=== PATIENT | female | born 1935 | race Caucasian/White ===

== ENCOUNTER 2023-07-18 17:53 | Emergency (ER) | payer MEDICARE ==
[~2023-07-18] VITALS: Ht 162.6 cm; Wt 45.5 kg
[2023-07-18 18:38] VITALS: O2SAT 97
[2023-07-18 19:40] VITALS: PULSE 80; RESP 12; O2SAT 94
[2023-07-18 20:00] VITALS: BP 164/75; PULSE 80; RESP 12; TEMP 98; O2SAT 96
== END 2023-07-18 20:33 | disposition home or self-care (01) ==
LOC: ER 17:53 → EDBD 17:53 → EDUNIT# 17:53 → ER 20:33
DX: S01.81XA Laceration without foreign body of other part of head, initial encounter (principal); Z88.6 Allergy status to analgesic agent; W18.09XA Striking against other object with subsequent fall, initial encounter; Y93.89 Activity, other specified; Y92.89 Other specified places as the place of occurrence of the external cause; Y99.8 Other external cause status
CPT/HCPCS: 12011; 70450

== ENCOUNTER 2023-07-20 14:01 | Emergency (ER) | payer MEDICARE ==
[~2023-07-20] VITALS: Ht 160 cm; Wt 45.6 kg
[2023-07-20 14:01] VITALS: BP 131/73; PULSE 76; RESP 18; O2SAT 98
== END 2023-07-20 15:31 | disposition left against medical advice (07) ==
LOC: ER 14:01
DX: S01.111D Laceration without foreign body of right eyelid and periocular area, subsequent encounter (principal); Z53.21 Procedure and treatment not carried out due to patient leaving prior to being seen by health care provider; W17.89XD Other fall from one level to another, subsequent encounter

== ENCOUNTER 2023-10-03 07:07 | Inpatient (IN) | payer MEDICARE ==
[~2023-10-03] VITALS: Ht 160 cm; Wt 50.2 kg
[2023-10-03 07:54] LABS: Basophils # (auto) 0 10 ^3/uL (0-0.2); Basophils % (auto) 0.6 % (0.0-2.0); Eosinophils # (auto) 0.2 10 ^3/uL (0-0.8); Eosinophils % (auto) 3.2 % (0.0-7.0); Hematocrit 41.4 % (36.0-46.0); Hemoglobin 14.5 g/dL (12.2-16.2); Lymphocytes # (auto) 1.8 10 ^3/uL (0.4-5.4); Lymphocytes % (auto) 24.2 % (10.0-50.0); Mean Corpuscular Hemoglobin 33.2 pg (28.0-32.0); Mean Corpuscular Hgb Conc. 34.9 g/dL (32.0-36.0); Mean Corpuscular Volume 95.2 fL (80.0-100.0); Monocytes # (auto) 0.6 10 ^3/uL (0-1.3); Neutrophils # (auto) 4.7 10 ^3/uL (1.6-8.6); Red Blood Cells 4.35 10^6/uL (4.0-5.20); Red Cell Distribution Width 13.6 % (11.8-14.3); White Blood Cell 7.4 10^3/uL (4.4-10.8)
[2023-10-03 08:06] LABS: Urine Bacteria None Seen /hpf (None Seen)
[2023-10-03 08:10] LABS: Alanine Aminotransferase 14 U/L (7-40); Albumin 4.4 g/dL (3.2-4.8); Alkaline Phosphatase 53 U/L (46-116); Anion Gap 10 (5-15); Aspartate Aminotransferase 18 U/L (13-40); BUN/Creatinine Ratio 13.1 (10.0-20.0); Blood Urea Nitrogen 13 mg/dL (9-23); Calcium 9.8 mg/dL (8.7-10.4); Carbon Dioxide 24 mmol/L (20-30); Chloride 104 mmol/L (98-107); Glucose 103 mg/dL (74-106); Potassium 4.4 mmol/L (3.5-5.1); Sodium 138 mmol/L (136-145)
[2023-10-03 08:11] LABS: Bilirubin, Total 0.6 mg/dL (0.2-1.0); Total Protein 6.8 g/dL (5.7-8.2)
[2023-10-03 08:12] LABS: Urine Blood Negative /uL (Negative); Urine Clarity Clear (Clear); Urine Color Light-Yellow (Yellow); Urine Protein, UAD Negative (Negative); Urine Specific Gravity 1.013 (1.001-1.035); Urine Urobilinogen Normal (Negative); Urine WBC 2 /hpf (0 - 5)
[2023-10-03 09:04] LABS: Lipase 40 U/L (12-53)
[2023-10-03 10:06] VITALS: PULSE 62; RESP 14; O2SAT 98
[2023-10-03] MEDS ORDERED: ONDANSETRON HCL 4 MG/2 ML VIAL IV PRN (12:00)
[2023-10-03] MEDS ORDERED: MORPHINE SULFATE INJ 2 MG/ml SYRG IV PRN (12:00)
[2023-10-03] MEDS: SODIUM CHLORIDE 0.9% 1,000 ML IV SCH (12:25)
[2023-10-03] MEDS: PANTOPRAZOLE 40 MG/10 ML VIAL INJ IV ONE (12:25)
[2023-10-03 12:29] LABS: Triglycerides 130 mg/dL (< 150)
[2023-10-03 12:30] LABS: LDL Cholesterol 91 mg/dL (< 100)
[2023-10-03 12:31] LABS: Cholesterol 172 mg/dL (< 200); HDL Cholesterol 65 mg/dL (40-59)
[2023-10-03 19:15] VITALS: BP 141/70; PULSE 68; RESP 18; TEMP 97.6; O2SAT 97
[2023-10-03] MEDS ORDERED: DICY10CA PO (19:43)
[2023-10-03] MEDS ORDERED: CITA10TA6 PO (19:43)
[2023-10-03] MEDS ORDERED: POM (19:43)
[2023-10-03] MEDS ORDERED: CYA100I (19:43)
[2023-10-03] MEDS ORDERED: SIMV20TA20 PO (19:43)
[2023-10-03] MEDS ORDERED: CHOL20007 PO (19:43)
[2023-10-03] MEDS ORDERED: PANT40TA2 PO (19:43)
[2023-10-03] MEDS ORDERED: DICY-89 PO (19:43)
[2023-10-03] MEDS ORDERED: ASCO500T11 PO (19:43)
[2023-10-03] MEDS ORDERED: MULT-1018 PO (19:43)
[2023-10-03] MEDS ORDERED: LORA-1121 PO (19:43)
[2023-10-03 21:00] VITALS: BP 158/66; PULSE 71; RESP 17; TEMP 97.8; O2SAT 96
[2023-10-03] MEDS: ATORVASTATIN 20 MG TAB PO SCH (21:07)
[2023-10-03] MEDS: METOPROLOL TARTRATE 25 MG TAB PO SCH (21:07)
[2023-10-04] VITALS (8 sets, daily range): BP systolic 124–156; BP diastolic 56–77; PULSE 63–81; RESP 16–17; TEMP 97.5–98.4; O2SAT 93–100
[2023-10-04 06:45] LABS: Basophils # (auto) 0.1 10 ^3/uL (0-0.2); Basophils % (auto) 1.3 % (0.0-2.0); Eosinophils # (auto) 0.2 10 ^3/uL (0-0.8); Eosinophils % (auto) 3.9 % (0.0-7.0); Hematocrit 41.1 % (36.0-46.0); Hemoglobin 14.1 g/dL (12.2-16.2); Lymphocytes # (auto) 1.6 10 ^3/uL (0.4-5.4); Lymphocytes % (auto) 25.5 % (10.0-50.0); Mean Corpuscular Hemoglobin 32.6 pg (28.0-32.0); Mean Corpuscular Hgb Conc. 34.3 g/dL (32.0-36.0); Mean Corpuscular Volume 95.2 fL (80.0-100.0); Monocytes # (auto) 0.6 10 ^3/uL (0-1.3); Monocytes % (auto) 9.1 % (0.0-12.0); Neutrophils # (auto) 3.7 10 ^3/uL (1.6-8.6); Neutrophils % (auto) 60.2 % (37.0-80.0); Red Blood Cells 4.32 10^6/uL (4.0-5.20); Red Cell Distribution Width 13.7 % (11.8-14.3); White Blood Cell 6.1 10^3/uL (4.4-10.8)
[2023-10-04 07:10] LABS: Alanine Aminotransferase 17 U/L (7-40); Alkaline Phosphatase 50 U/L (46-116); Anion Gap 5 (5-15); Aspartate Aminotransferase 18 U/L (13-40); BUN/Creatinine Ratio 10.1 (10.0-20.0); Bilirubin, Total 0.6 mg/dL (0.2-1.0); Blood Urea Nitrogen 9 mg/dL (9-23); Calcium 9.4 mg/dL (8.7-10.4); Carbon Dioxide 27 mmol/L (20-30); Chloride 108 mmol/L (98-107); Glucose 96 mg/dL (74-106); Potassium 4.3 mmol/L (3.5-5.1); Sodium 140 mmol/L (136-145); Total Protein 6.1 g/dL (5.7-8.2)
[2023-10-04] MEDS ORDERED: ENOXAPARIN SOD 30 MG/0.3 ML SYRINGE SC SCH (10:00)
[2023-10-04] MEDS: CITALOPRAM HYDROBR 20 MG TAB PO SCH (10:02)
[2023-10-04] MEDS: PANTOPRAZOLE 40 MG/10 ML VIAL INJ IV SCH (10:02)
[2023-10-04] MEDS: levoFLOXacin 500MG 100 ML IV SCH (13:01)
[2023-10-04] MEDS: metroNIDAZOLE 500MG/100ML 100 ML IV SCH (17:42)
[2023-10-04] MEDS: ACETAMINOPHEN 325 MG TAB PO PRN (18:31)
[2023-10-04] MEDS: HYDROcodone-ACET 5/325MG TAB PO PRN (22:31)
[2023-10-05] VITALS (7 sets, daily range): BP systolic 103–147; BP diastolic 53–67; PULSE 63–97; RESP 13–21; TEMP 97.5–98.2; O2SAT 96–100
[2023-10-05 06:17] LABS: Basophils # (auto) 0.1 10 ^3/uL (0-0.2); Basophils % (auto) 0.9 % (0.0-2.0); Eosinophils # (auto) 0.2 10 ^3/uL (0-0.8); Eosinophils % (auto) 2.5 % (0.0-7.0); Hematocrit 39.4 % (36.0-46.0); Hemoglobin 13.7 g/dL (12.2-16.2); Lymphocytes # (auto) 1.4 10 ^3/uL (0.4-5.4); Lymphocytes % (auto) 15.3 % (10.0-50.0); Mean Corpuscular Hemoglobin 33.2 pg (28.0-32.0); Mean Corpuscular Hgb Conc. 34.9 g/dL (32.0-36.0); Mean Corpuscular Volume 95.1 fL (80.0-100.0); Monocytes % (auto) 10.9 % (0.0-12.0); Neutrophils # (auto) 6.3 10 ^3/uL (1.6-8.6); Neutrophils % (auto) 70.4 % (37.0-80.0); Nucleated Red Blood Cells % 0.1 %; Red Blood Cells 4.14 10^6/uL (4.0-5.20); Red Cell Distribution Width 13.2 % (11.8-14.3)
[2023-10-05 06:30] LABS: INR 1.1 (0.9-1.15); Partial Thromboplastin Time 27.4 SEC (24.5-34.5); Prothrombin Time 11.6 sec (9.3-11.8)
[2023-10-05 06:36] LABS: Anion Gap 5 (5-15); Carbon Dioxide 28 mmol/L (20-30); Chloride 108 mmol/L (98-107); Potassium 4.2 mmol/L (3.5-5.1); Sodium 141 mmol/L (136-145)
[2023-10-05 06:37] LABS: Calcium 9.3 mg/dL (8.7-10.4)
[2023-10-05 06:42] LABS: BUN/Creatinine Ratio 8.5 (10.0-20.0); Blood Urea Nitrogen 8 mg/dL (9-23); Glucose 97 mg/dL (74-106)
[2023-10-05] MEDS ORDERED: SODIUM CHLORIDE LOCK 10 ML ONE (09:18)
[2023-10-05] MEDS ORDERED: SIMETHICONE 40 MG/0.6 ML ORAL DROP ONE (09:19)
[2023-10-05] MEDS: LIDOCAINE VISCOUS 2% 15ML UD ONE (10:52)
[2023-10-05] MEDS: MIDAZOLAM HCL 5 MG/ML-1ML VIAL ONE (10:54)
[2023-10-05] MEDS: diphenhdrAMINE HCL 50 MG/1 ML VL ONE (10:54)
[2023-10-05] MEDS: fentaNYL CITRATE 100 MCG/2 ML VL ONE (10:54)
[2023-10-05] MEDS: hydrALAZINE HCL 20 MG/ML VL IV PRN (12:18)
[2023-10-05] MEDS: SUCRALFATE 1 GM/10 ML ORAL SUSP GT SCH (21:21)
[2023-10-06 01:00] VITALS: BP 136/61; PULSE 64; RESP 16; TEMP 98.7; O2SAT 98
[2023-10-06 05:00] VITALS: BP 133/72; PULSE 77; RESP 17; TEMP 97.8; O2SAT 100
[2023-10-06 05:40] VITALS: BP 133/72; PULSE 77; RESP 17; TEMP 97.8; O2SAT 100
[2023-10-06 08:00] VITALS: RESP 16; O2SAT 100
[2023-10-06 09:35] VITALS: BP 135/54; PULSE 71; RESP 18; TEMP 98.7; O2SAT 96
[2023-10-06] MEDS ORDERED: PANT40TA2 PO (10:01)
[2023-10-06 12:02] VITALS: BP 114/53; PULSE 92; RESP 20; TEMP 98.6; O2SAT 96
== END 2023-10-06 16:15 | disposition home or self-care (01) | DRG 392 ==
LOC: ER 07:07 → OVERFLOW 11:51 → EAST 18:50
PROVIDERS: ADMIT Registered Nurse; ATTEND Internal Medicine
PROC: 0DB68ZX Excision of Stomach, Via Natural or Artificial Opening Endoscopic, Diagnostic (ICD-10-PCS; 2023-10-05)
PROC: 0DB98ZX Excision of Duodenum, Via Natural or Artificial Opening Endoscopic, Diagnostic (ICD-10-PCS; principal; 2023-10-05 10:45)
DX: K29.70 Gastritis, unspecified, without bleeding (principal); Z68.1 Body mass index [BMI] 19.9 or less, adult; N39.0 Urinary tract infection, site not specified; K57.30 Diverticulosis of large intestine without perforation or abscess without bleeding; E78.5 Hyperlipidemia, unspecified; F41.9 Anxiety disorder, unspecified; R63.6 Underweight; I10 Essential (primary) hypertension; J43.9 Emphysema, unspecified; K82.8 Other specified diseases of gallbladder; K83.8 Other specified diseases of biliary tract; R13.10 Dysphagia, unspecified; Z96.612 Presence of left artificial shoulder joint; K44.9 Diaphragmatic hernia without obstruction or gangrene; Z88.5 Allergy status to narcotic agent; Z88.8 Allergy status to other drugs, medicaments and biological substances; Z82.3 Family history of stroke; Z79.899 Other long term (current) drug therapy
CPT/HCPCS: 36415; 43239; 71045; 74176; 74181; 76705; 80048; 80053; 80061; 81001; 82607; 83690; 85025; 85610; 85730; 86850; 86900; 86901; 93005; 96361; 96374; 97110; 97116; 97163; G0378; J1956; J2250; J2470; J3490

== ENCOUNTER 2024-06-11 07:46 | Inpatient (IN) | payer MEDICARE ==
[~2024-06-11] VITALS: Ht 160 cm; Wt 47.4 kg
[~2024-06-11 07:46] MED LIST: ASCO500T11 PO; CHOL20007 PO; CITA10TA6 PO; CYA100I; DICY10CA PO; LORA-1121 PO; MULT-1018 PO; PANT40TA2 PO; POM; SIMV20TA20 PO
[2024-06-11 08:14] VITALS: PULSE 76; RESP 15; O2SAT 99
[2024-06-11 08:17] LABS: Urine Bacteria None Seen /hpf (None Seen)
[2024-06-11] MEDS: SODIUM CHLORIDE 0.9% 1,000 ML IV ONE (08:21)
[2024-06-11] MEDS: ONDANSETRON HCL 4 MG/2 ML VIAL IV ONE ×2 (08:22→10:41)
--- NOTE | 2024-06-11 08:25 | ED.PDOC ---
GI ASSESSMENT HPI Comments 88 year old female ERIN presents to the ED with chief complaint of abdominal pain. Patient reports that she has been experiencing intermittent epigastric pain with nausea and vomiting for the past week, however, since last night has been her worst episode. Patient denies any diarrhea, chest pain, SOB, dysuria, fever, chills, or hematemesis. Chief Complaint: Abdominal Pain Time Seen by MD: 08:23 Reviewed Notes: Nurses Notes, Residential Finish Carpenter Notes, Medications, Allergies Allergies: Coded Allergies: Codeine (Verified Allergy, Unknown, 06/11/24) Sulfa Antibiotics (Verified Allergy, Unknown, 06/11/24) Information Source: Patient, Emergency Med Personnel Mode of Arrival: EMS Timing: Days Duration: Since onset Prehospital treatment: None Quality: None Vomitus: Watery Stool: Normal Severity: Moderate Recent: None Recent Hx of: None Pain Location: Epigastric Modifying Factors: Nothing Associated sign and symptoms: Nausea, Vomiting, Abdominal Pain Past Medical History Past Medical History (Other): Gastritis Surgical History: Denies all surgeries 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 INSERTING MACHINE OPERATOR History Family History Family History: Reviewed,noncontributory to illness Social History Smoker: Non-Smoker Alcohol: Denies ETOH Use Drugs: Denies Drug Use Lives In: Shelter Constitutional: denies: chills, diaphoresis, fatigue, fever, malaise, sweats, weakness, others EENTM: denies: blurred vision, double vision, ear bleeding, ear discharge, ear drainage, ear pain, ear ringing, eye pain, eye redness, hearing loss, mouth pain, mouth swelling, nasal discharge, nose bleeding, nose congestion, nose pain, photophobia, tearing, throat pain, throat swelling, voice changes, others Respiratory: denies: cough, hemoptysis, orthopnea, SOB at rest, shortness of breath, SOB with excertion, stridor, wheezing, others Cardiovascular: denies: chest pain, dizzy spells, diaphoresis, Dyspnea on exertion, edema, irregular heart beat, left arm pain, lightheadedness, palpitations, PND, syncope, others Gastrointestinal: reports: abdominal pain, nausea, vomiting; denies: abdomen distended, blood streaked bowels, constipated, diarrhea, dysphagia, difficulty swallowing, hematemesis, melena, poor appetite, poor fluid intake, rectal bleeding, rectal pain, others Genitourinary: denies: abnormal vagina bleeding, burning, dyspareunia, dysuria, flank pain, frequency, hematuria, incontinence, pain, , vagina discharge, urgency, others Neurological: denies: dizziness, fainting, headache, left sided numbness, left sided weakness, numbness, paresthesia, pre-existing deficit, right sided numbness, right sided weakness, seizure, speech problems, tingling, tremors, weakness, others Musculoskeletal: denies: back pain, gout, joint pain, joint swelling, muscle pain, muscle stiffness, neck pain, others Integumetry: denies: bruises, change in color, change in hair/nails, dryness, laceration, lesions, lumps, rash, wounds, others Allergic/Immunocompromised: denies: Difficulty Healing, Frequent Infections, Hives, Itching, others Hematologic/Lymphatic: denies: anemia, blood clots, easy bleeding, easy bruising, swollen glands, others Endocrine: denies: excessive hunger, excessive sweating, excessive thirst, excessive urination, flushing, intolerance to cold, intolerance to heat, unexplained weight gain, unexplained weight loss, others Psychiatric: denies: anxiety, bipolar disorder, depression, hopeless, panic disorder, schizophrenia, sleepless, suicidal, others All Other Systems: Reviewed and Negative Physical Exam General Appearance: Moderate Distress, Normal HEENT: Normal ENT Inspection, PERRL/EOMI Neck: Full Range of Motion, Non-Tender, Normal, Normal Inspection Respiratory: Chest Non-Tender, Lungs Clear, No Accessory Muscle Use, No Respira tory Distress, Normal Breath Sounds Cardiovascular: No Edema, No JVD, No Murmur, No Gallop, Normal Peripheral Pulses, Regular Rate/Rhythm Breast Exam: Deferred Gastrointestinal: Diffuse, No Organomegaly, No Pulsatile Mass, Normal Bowel Sounds, Soft Genitalia: Deferred Pelvic: Deferred Rectal: Deferred Extremities: No calf tenderness, Normal capillary refill, Normal inspection, Normal range of motion, Non-tender, No pedal edema Musculoskeletal : Apperance: Normal Neurologic: Alert, wallcovering texturer II-XII nml as Tested, No Motor Deficits, Normal Affect, Normal Mood, No Sensory Deficits Cerebellar Function: NOT DONE Reflexes: NOT DONE Skin: Dry, Normal Color, Warm Peripheral Pulses: 3+ Radial (R), 3+ Radial (L) Lymphatic: No Adenopathy Was a procedure done? Was a procedure done?: No GI differential Dx Differential Diagnosis: Constipation, Diverticular disease, Esophagitis, Gastritis/PUD, Gastroenteritis X-Ray, Labs, Meds, VS Vital Signs Date Time Temp Pulse Resp B/P (MAP) Pulse Ox O2 Delivery O2 Flow Rate FiO2 06/11/24 08:18 97.9 74 15 103/53 (70) 95 97.9 06/11/24 08:14 76 15 99 Room Air* 0 21 06/11/24 07:56 97.6 79 16 168/84 (112) 99 97.6 Lab Test 06/11/24 08:46 06/11/24 08:05 Range/Units White Blood Count 7.8 4.4-10.8 10^3/uL Red Blood Count 4.42 4.0-5.20 10^6/uL Hemoglobin 14.4 12.2-16.2 g/dL Hematocrit 41.8 36.0-46.0 % Mean Corpuscular Volume 94.4 80.0-100.0 fL Mean Corpuscular Hemoglobin 32.6 H 28.0-32.0 pg Mean Corpuscular Hemoglobin Concent 34.6 32.0-36.0 g/dL Red Cell Distribution Width 13.3 11.8-14.3 % Platelet Count 253 140-450 10^3/uL Mean Platelet Volume 6.5 L 6.9-10.8 fL Neutrophils (%) (Auto) 67.0 37.0-80.0 % Lymphocytes (%) (Auto) 23.9 10.0-50.0 % Monocytes (%) (Auto) 6.1 0.0-12.0 % Eosinophils (%) (Auto) 2.1 0.0-7.0 % Basophils (%) (Auto) 0.9 0.0-2.0 % Neutrophils # (Auto) 5.2 1.6-8.6 10 ^3/uL Lymphocytes # (Auto) 1.9 0.4-5.4 10 ^3/uL Monocytes # (Auto) 0.5 0-1.3 10 ^3/uL Eosinophils # (Auto) 0.2 0-0.8 10 ^3/uL Basophils # (Auto) 0.1 0-0.2 10 ^3/uL Nucleated Red Blood Cells 0.0 % Sodium Level Pending Potassium Level Pending Chloride Level Pending Carbon Dioxide Level Pending Anion Gap Pending Blood Urea Nitrogen Pending Creatinine Pending Glomerular Filtration Rate Calc Pending BUN/Creatinine Ratio Pending Serum Glucose Pending Calcium Level Pending Troponin I High Sensitivity Pending Urine Color Colorless Yellow Urine Clarity Clear Clear Urine pH 7.5 5.0-9.0 Urine Specific [place] 1.006 1.001-1.035 Urine Protein Negative Negative Urine Ketones Negative Negative Urine Blood Negative Negative /uL Urine Nitrite Negative Negative Urine Bilirubin Negative Negative Urine Urobilinogen Normal Negative mg/dL Urine Leukocyte Esterase Negative Negative /uL Urine RBC <1 0 - 4 /hpf Urine Microscopic WBC < 1 0-5 /HPF Urine Squamous Epithelial Cells Few <5 /hpf Urine Bacteria None seen None Seen /hpf Urine Glucose Normal Normal mg/dL Current Medications Medications (Trade) Dose Ordered Sig/Rob Route Start Time Stop Time Status Last Admin Ondansetron HCl (Zofran) 4 mg ONCE ONCE IV 06/11/24 08:15 06/11/24 08:16 DC 06/11/24 08:22 Sodium Chloride 1,000 ml @ 1,000 mls/hr Q1H ONCE IV 06/11/24 08:15 06/11/24 09:14 06/11/24 08:21 Patient alert. Complaining of abdominal pain. Vitals stable. Good skin color. Moving all extremities. Establish intravenous access. Was given fluids. Was given Zofran. WBC within normal limits. Hemoglobin within normal limits pain Continues to have abdominal discomfort. CT scan of the abdomen. Possible colonoscopy. GI consultation. Reviewed her previous visit. Explained to the patient. Continue monitoring. EKG reviewed does not show any acute changes. Time of 1ST Reevaluation: 09:23 Reevaluation 1ST: Unchanged Patient Education/Counseling: Diagnosis, Treatment Family Education/Counseling: No Family Present Additional Information Previous visit documents reviewed: None The following tests were ordered, and results were reviewed by me: CT Abd/Pel Additional Information was gathered from interviewing the following independent historians: EMS I reviewed and agreed with the following test results read by other providers: CT Abd/Pel I discussed treatment and results with medical personnel and: Patient Comprehensive systems review obtained and negative except for what is stated in the HPI. Departure 1 Departure Time of Disposition: 09:11 Impression: Primary Impression: Acute abdominal pain Additional Impression: Non-specific colitis Disposition: ADMITTED INPATIENT Admit to: Med Surg Condition: Guarded Critical Care Note Critical Care Time?: No Stability Stability form required: No Heart Score Heart Score: Heart Score Response (Comments) Value History Slightly Suspicious 0 EKG Normal 0 Age >65 2 Risk Factors >3 or Hx ASHD 2 Troponin Normal limit 0 Total 4 I personally scribed for AMBER SALMON MD ([email or web address]) on 06/11/24 at 08:25. Electronically submitted by Art Blair ([email or web address]). AMBER SALMON MD Jun 11, 2024 08:25
[2024-06-11 08:32] LABS: Urine Blood Negative /uL (Negative); Urine Clarity Clear (Clear); Urine Color Colorless (Yellow); Urine Protein, UAD Negative (Negative); Urine Specific Gravity 1.006 (1.001-1.035); Urine Squamous Epithelial Cell FEW /hpf (<5); Urine Urobilinogen Normal (Negative); Urine WBC < 1 /HPF (0-5); Urine pH 7.5 (5.0-9.0)
[2024-06-11 09:01] LABS: Basophils # (auto) 0.1 10 ^3/uL (0-0.2); Basophils % (auto) 0.9 % (0.0-2.0); Eosinophils # (auto) 0.2 10 ^3/uL (0-0.8); Eosinophils % (auto) 2.1 % (0.0-7.0); Hematocrit 41.8 % (36.0-46.0); Hemoglobin 14.4 g/dL (12.2-16.2); Lymphocytes # (auto) 1.9 10 ^3/uL (0.4-5.4); Lymphocytes % (auto) 23.9 % (10.0-50.0); Mean Corpuscular Hemoglobin 32.6 pg (28.0-32.0); Mean Corpuscular Hgb Conc. 34.6 g/dL (32.0-36.0); Mean Corpuscular Volume 94.4 fL (80.0-100.0); Monocytes # (auto) 0.5 10 ^3/uL (0-1.3); Monocytes % (auto) 6.1 % (0.0-12.0); Neutrophils # (auto) 5.2 10 ^3/uL (1.6-8.6); Platelet Count (auto) 253 10^3/uL (140-450); Red Blood Cells 4.42 10^6/uL (4.0-5.20); Red Cell Distribution Width 13.3 % (11.8-14.3); White Blood Cell 7.8 10^3/uL (4.4-10.8)
[2024-06-11 09:15] LABS: Potassium 4.3 mmol/L (3.5-5.1); Sodium 141 mmol/L (136-145)
[2024-06-11 09:16] LABS: Anion Gap 7 (5-15); Calcium 9.5 mg/dL (8.7-10.4); Carbon Dioxide 25 mmol/L (20-31)
[2024-06-11 09:21] LABS: BUN/Creatinine Ratio 15.7 (10.0-20.0); Blood Urea Nitrogen 17 mg/dL (9-23); Glucose 105 mg/dL (74-106)
[2024-06-11 09:24] LABS: Chloride 109 mmol/L (98-107)
--- NOTE | 2024-06-11 09:43 | DVHHP2 ---
History of Present Illness Reason for Visit: Severe abdominal pain History of Present Illness 88-year-old female past medical history gastritis hypertension anxiety IBS, hyperlipidemia, COPD, osteoporosis, gallstones chief complaint patient comes in with pain in her abdomen. She states the pain is so severe it caused her to be up all night with some diarrhea. Patient states she usually has a abdominal pain but this pain is worse than she ever expected. Patient states the pain radiates to her epigastric area with nausea and vomiting. She has no fever. No chest pain no shortness with the breath but she does feel weak. Been taking her medication as prescribed. Patient states she has a appointment with the gastric group at the end of June. But she states she could not wait that long because the pain was so severe when evaluating patient's labs and imaging CBC was unremarkable creatinine was mildly elevated at 1.8 otherwise CMP unremarkable UA was negative CT scan of the abdomen pelvis shows colitis without obstruction. With these findings we will admit for further workup and IV antibiotics and GI consult Past Medical History See HPI above Past Surgical History See HPI above Family History Reviewed, non-contributory to the management of this case. Past Social History The patient lives at home, denies smoking, alcohol or illicit drugs abuse. Review of Systems Constitutional: No: Fever, Chills, Sweats, Weakness, Malaise, Other Eyes: No: Pain, Vision change, Conjunctivae inflammation, Eyelid inflammation, Other, Redness ENT: No: Ear pain, Ear discharge, Nose pain, Nose discharge, Nose congestion, Mouth pain, Mouth swelling, Throat pain, Throat swelling, Other Respiratory: No: Cough, Dry, Shortness of breath, SOB with excertion, Wheezing, Hemoptysis, Pleuritic Pain, Sputum, Wheezing, Other Cardiovascular: No: Chest Pain, Palpitations, Orthopnea, Paroxysmal Noc. Dyspnea, Edema, Lt Headedness, Other Gastrointestinal: Nausea, Vomiting, Abdominal Pain, Diarrhea; No: Constipation, Melena, Hematochezia, Other Genitourinary: No Dysuria, No Frequency, No Incontinence, No Hematuria, No Retention, No Other Musculoskeletal: No: other, neck pain, shoulder pain, arm pain, back pain, hand pain, leg pain, foot pain Skin: No: Rash, Lesions, Jaundice, Bruising, Other Neurological: Weakness; No: Numbness, Incoordination, Change in speech, Confu inés, Seizures, Other Allergies: Coded Allergies: Codeine (Verified Allergy, Unknown, 06/11/24) Sulfa Antibiotics (Verified Allergy, Unknown, 06/11/24) Exam Vital Signs Vital Signs Date Time Temp Pulse Resp B/P (MAP) Pulse Ox O2 Delivery O2 Flow Rate FiO2 06/11/24 08:18 97.9 74 15 103/53 (70) 95 97.9 06/11/24 08:14 Room Air* 0 21 General Appearance: Alert, Oriented X3, Cooperative, No acute distress HEENT: Atraumatic, PERRLA, EOMI, Mucous membr. moist/pink Respiratory: Clear to auscultation, Normal air movement Cardiovascular: Regular rate, Normal S1, Normal S2, No murmurs Abdominal: Normal bowel sounds, Soft, No masses, Other (Guarding and rebound tenderness) Extremities: No clubbing, No cyanosis, No edema, Normal pulses, No tenderness/swelling Skin: No rashes, No breakdown, No significant lesion Neuro: Normal speech, Strength at 5/5 X4 ext, Normal tone, Sensation intact, Cranial nerves 3-12 NL Psych/Mental Status: Mental status NL, Mood NL Labs/Xrays CT scan abdomen pelvis shows colitis without obstruction I reviewed labs, imaging CT scan abdomen pelvis, EKG and all diagnostic studies on this patient from ED records and the medical chart Labs Test 06/11/24 08:46 06/11/24 08:05 Range/Units White Blood Count 7.8 4.4-10.8 10^3/uL Red Blood Count 4.42 4.0-5.20 10^6/uL Hemoglobin 14.4 12.2-16.2 g/dL Hematocrit 41.8 36.0-46.0 % Mean Corpuscular Volume 94.4 80.0-100.0 fL Mean Corpuscular Hemoglobin 32.6 H 28.0-32.0 pg Mean Corpuscular Hemoglobin Concent 34.6 32.0-36.0 g/dL Red Cell Distribution Width 13.3 11.8-14.3 % Platelet Count 253 140-450 10^3/uL Mean Platelet Volume 6.5 L 6.9-10.8 fL Neutrophils (%) (Auto) 67.0 37.0-80.0 % Lymphocytes (%) (Auto) 23.9 10.0-50.0 % Monocytes (%) (Auto) 6.1 0.0-12.0 % Eosinophils (%) (Auto) 2.1 0.0-7.0 % Basophils (%) (Auto) 0.9 0.0-2.0 % Neutrophils # (Auto) 5.2 1.6-8.6 10 ^3/uL Lymphocytes # (Auto) 1.9 0.4-5.4 10 ^3/uL Monocytes # (Auto) 0.5 0-1.3 10 ^3/uL Eosinophils # (Auto) 0.2 0-0.8 10 ^3/uL Basophils # (Auto) 0.1 0-0.2 10 ^3/uL Nucleated Red Blood Cells 0.0 % Sodium Level 141 136-145 mmol/L Potassium Level 4.3 3.5-5.1 mmol/L Chloride Level 109 H 98-107 mmol/L Carbon Dioxide Level 25 20-31 mmol/L Anion Gap 7 5-15 Blood Urea Nitrogen 17 9-23 mg/dL Creatinine 1.08 H 0.550-1.02 mg/dL Glomerular Filtration Rate Calc 50 >90 mL/min BUN/Creatinine Ratio 15.7 10.0-20.0 Serum Glucose 105 74-106 mg/dL Calcium Level 9.5 8.7-10.4 mg/dL Troponin I High Sensitivity 9 </=34 ng/L Urine Color Colorless Yellow Urine Clarity Clear Clear Urine pH 7.5 5.0-9.0 Urine Specific [place] 1.006 1.001-1.035 Urine Protein Negative Negative Urine Ketones Negative Negative Urine Blood Negative Negative /uL Urine Nitrite Negative Negative Urine Bilirubin Negative Negative Urine Urobilinogen Normal Negative mg/dL Urine Leukocyte Esterase Negative Negative /uL Urine RBC <1 0 - 4 /hpf Urine Microscopic WBC < 1 0-5 /HPF Urine Squamous Epithelial Cells Few <5 /hpf Urine Bacteria None seen None Seen /hpf Urine Glucose Normal Normal mg/dL Assessment/Plan Assessment/Plan acute intractable abdominal pain likely related to colitis ct scan found colitis no obstruction trop negative ekg no stemi npo for now ivf ordered protonix for now ordered morphine as needed for pain ordered lipase ordered doxy acute colitis without abscess or perforation found on ct scan ordered zosyn for now ordered morphine as needed for pain ordered gi consult fu results npo for now ordered ivf acute diarrhea ordered c diff acute elevation in crea ordered iv hydration for now fen/ppx npo ivf protonix scd heparin for now plan admit to medicine Plan discussed with: Patient Date of Service: Jun 11, 2024 Billing Provider: WAYNE JULIAN DNP Common Visit Codes: [id number] INP/OBS CARE (HIGH) WAYNE JULIAN DNP Jun 11, 2024 09:43
[2024-06-11] MEDS: MORPHINE SULFATE INJ 2 MG/ml SYRG IV ONE (10:28)
--- NOTE | 2024-06-11 10:29 | DVH ---
EXAM: XY CHEST PORTABLE HISTORY: sob COMPARISON: Comparison is made with report of chest x-ray dated 10/04/2023, although the images were not made available on the PAC system for viewing. TECHNIQUE: Portable AP view of the chest was performed. FINDINGS: There is a mild left basilar infiltrate. No pneumothorax or pulmonary edema. The upper lung s are hyperlucent. The heart is not enlarged. The aortic arch is calcific. 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 IMPRESSION: 1. Mild left basilar infiltrate may be due to pneumonia or scarring. Recommend comparison with previ ous chest x-ray dated 10/04/2023 to help make this distinction. 2. Possible emphysema of the upper lobes.
[2024-06-11] MEDS ORDERED: DOCUSATE SOD 100 MG CAP PO PRN (10:30)
[2024-06-11] MEDS ORDERED: MORPHINE SULFATE INJ 2 MG/ml SYRG IV PRN ×2 (10:30)
[2024-06-11] MEDS ORDERED: ONDANSETRON HCL 4 MG/2 ML VIAL IV PRN (10:30)
[2024-06-11] MEDS: SUCRALFATE 1 GM/10 ML ORAL SUSP PO SCH (10:41)
[2024-06-11] MEDS: DICYCLOMINE HCL (10MG/ML) 2 ML AMPULE IM ONE (10:41)
[2024-06-11] MEDS: PANTOPRAZOLE 40 MG/10 ML VIAL INJ IV ONE (10:41)
[2024-06-11] MEDS: SODIUM CHLORIDE 0.9% 1,000 ML IV SCH (10:42)
--- NOTE | 2024-06-11 11:30 | DVH ---
Exam: CT CT AB PEL WO CON-NO ORAL OR IV History: colitis Comparison Study: None Technique: Multidetector spiral CT of the abdomen was performed from lung bases to pubic symphysis. Imaging was performed without IV contrast. Axial, coronal and sagittal multiplanar reformats were ob tained from the axial data set by the technologist. Radiation Dose : 1. Abdomen/Pelvis: CTDIvol 5.22 mGy, DLP 251.62 mGy*cm. Findings: Evaluation of solid organs is limited due to lack of intravenous contrast use. Lung Bases: Fibrosis is seen in the bilateral lung bases. Liver: The liver is normal in size. No focal lesions. Gallbladder and Biliary Tree: Unremarkable Spleen: Unremarkable Pancreas: The pancreas is grossly normal in appearance. Adrenal Glands: Unremarkable Kidneys: Kidneys are grossly normal without calculi or hydronephrosis. Bladder: Grossly unremarkable for degree of distention. Bowel: The stomach is grossly normal in appearance. Concentric wall thickening of the distal colon kim ggestive of mild infectious / inflammatory colitis. The appendix is not visualized; however, no seco ndary findings of acute appendicitis identified. Ascites: Absent Lymphadenopathy: No mesenteric, retroperitoneal or periportal lymphadenopathy. Abdominal Wall and Mesentery: Unremarkable. Vasculature: The visualized abdominal aorta is normal in size and caliber. Evaluation of abdominal a nd pelvic vessels is limited due to lack of intravenous contrast. Pelvic Organs: Unremarkable Musculoskeletal: No aggressive focal bony lesions, acute fractures or dislocation. 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 Radiation optimization: All CT scans at this facility use at least one of these dose optimization teresa hniques: automated exposure control mA and/or kV adjustment per patient size (includes targeted exam s where dose is matched to clinical indication) or iterative reconstruction.
[2024-06-11] MEDS ORDERED: NITROGLYCERIN 0.4 MG SL TAB SL PRN (11:45)
[2024-06-11] MEDS: PIPERACILLIN-TAZOB 3.375GM 100 ML IV ONE (12:47)
[2024-06-11 12:55] VITALS: BP 130/64; PULSE 65; RESP 18; TEMP 98; O2SAT 95; O2SAT 97
[2024-06-11 17:00] VITALS: BP 148/70; PULSE 69; RESP 18; TEMP 97.5; O2SAT 96
[2024-06-11] MEDS: DICYCLOMINE HCL 10 MG CAP PO SCH (17:31)
[2024-06-11 20:30] VITALS: PULSE 72; RESP 18; O2SAT 98
[2024-06-11 21:00] VITALS: BP 142/70; PULSE 72; RESP 18; TEMP 97.7; O2SAT 98
[2024-06-11] MEDS: PANTOPRAZOLE 40 MG/10 ML VIAL INJ IV SCH (22:30)
[2024-06-11] MEDS: PIPERACILLIN-TAZOB 3.375GM 100 ML IV SCH (22:31)
[2024-06-12] VITALS (8 sets, daily range): BP systolic 102–148; BP diastolic 58–73; PULSE 58–74; RESP 16–18; TEMP 97.3–98.3; O2SAT 93–99
[2024-06-12 05:51] LABS: Basophils # (auto) 0.1 10 ^3/uL (0-0.2); Basophils % (auto) 0.8 % (0.0-2.0); Eosinophils # (auto) 0.4 10 ^3/uL (0-0.8); Eosinophils % (auto) 5.6 % (0.0-7.0); Hemoglobin 13.7 g/dL (12.2-16.2); Lymphocytes # (auto) 1.9 10 ^3/uL (0.4-5.4); Lymphocytes % (auto) 26.8 % (10.0-50.0); Mean Corpuscular Hemoglobin 32.3 pg (28.0-32.0); Mean Corpuscular Hgb Conc. 33.4 g/dL (32.0-36.0); Mean Corpuscular Volume 96.6 fL (80.0-100.0); Monocytes # (auto) 0.6 10 ^3/uL (0-1.3); Monocytes % (auto) 8.6 % (0.0-12.0); Neutrophils # (auto) 4.1 10 ^3/uL (1.6-8.6); Neutrophils % (auto) 58.2 % (37.0-80.0); Platelet Count (auto) 239 10^3/uL (140-450); Red Blood Cells 4.25 10^6/uL (4.0-5.20); Red Cell Distribution Width 13.6 % (11.8-14.3)
[2024-06-12 06:11] LABS: Alanine Aminotransferase 14 U/L (7-40); Albumin 4.2 g/dL (3.2-4.8); Anion Gap 6 (5-15); Aspartate Aminotransferase 22 U/L (13-40); Blood Urea Nitrogen 11 mg/dL (9-23); Calcium 9.3 mg/dL (8.7-10.4); Carbon Dioxide 26 mmol/L (20-31); Glucose 81 mg/dL (74-106); Sodium 143 mmol/L (136-145); Total Protein 6.5 g/dL (5.7-8.2)
[2024-06-12 06:12] LABS: Bilirubin, Total 0.8 mg/dL (0.2-1.0)
[2024-06-12 06:16] LABS: Alkaline Phosphatase 45 U/L (46-116); Chloride 111 mmol/L (98-107)
--- NOTE | 2024-06-12 12:41 | DVHINCON2 ---
GI Consult Consult Note GI consult note Date of Consultation: 06/12/2024 Chief Complaint: Acute colitis Referring Physician: Timbo ASKEW H&P: 88-year-old female presented to ER with complains of abdominal pain Patient complains of intermittent abdominal cramping type pain on and off for many months, recently noticed that it is worsening. Patient lives at [facility], and has noticed that she is becoming more sensitive to the foods that are served there Patient has nausea. Denies vomiting. No weight loss Patient complains of loose stool starting Wednesday p.m., multiple episodes, liquid stool light brown in color. No melena or red blood in stool Patient denies recent antibiotic use. No history of recent travel Patient admitted to the hospital in October 05, status post EGD Last colonoscopy more than six years ago per patient Past Medical History: Gastritis, hypertension, hyperlipidemia, COPD, osteoporosis, gallstone, anxiety Past Surgical History: None Social History: NO smoking, drinking ETOH and use of illegal drugs. Family History: Noncontributory Review of Systems: Constitutional: no fever, chill, weight loss HEENT: no eye pain, no hearing loss, no oral lesion, no scleral icterus Heart: no chest pain, no chest pressure Lung: no cough, no dyspnea with exertion Abdomen: see HPI Physical exam: General: NAD, AAOX3 Chest: , lung dawn clear to auscultation Heart: RRR, no murmur Abdomen: Mild-distended, no tenderness to palpation, +BS Labs: Labs Test 06/12/24 05:24 06/11/24 08:46 06/11/24 08:05 Range/Units White Blood Count 7.0 4.4-10.8 10^3/uL Red Blood Count 4.25 4.0-5.20 10^6/uL Hemoglobin 13.7 12.2-16.2 g/dL Hematocrit 41.0 36.0-46.0 % Mean Corpuscular Volume 96.6 80.0-100.0 fL Mean Corpuscular Hemoglobin 32.3 H 28.0-32.0 pg Mean Corpuscular Hemoglobin Concent 33.4 32.0-36.0 g/dL Red Cell Distribution Width 13.6 11.8-14.3 % Platelet Count 239 140-450 10^3/uL Mean Platelet Volume 6.9 6.9-10.8 fL Neutrophils (%) (Auto) 58.2 37.0-80.0 % Lymphocytes (%) (Auto) 26.8 10.0-50.0 % Monocytes (%) (Auto) 8.6 0.0-12.0 % Eosinophils (%) (Auto) 5.6 0.0-7.0 % Basophils (%) (Auto) 0.8 0.0-2.0 % Neutrophils # (Auto) 4.1 1.6-8.6 10 ^3/uL Lymphocytes # (Auto) 1.9 0.4-5.4 10 ^3/uL Monocytes # (Auto) 0.6 0-1.3 10 ^3/uL Eosinophils # (Auto) 0.4 0-0.8 10 ^3/uL Basophils # (Auto) 0.1 0-0.2 10 ^3/uL Nucleated Red Blood Cells 0.0 % Sodium Level 143 136-145 mmol/L Potassium Level 4.0 3.5-5.1 mmol/L Chloride Level 111 H 98-107 mmol/L Carbon Dioxide Level 26 20-31 mmol/L Anion Gap 6 5-15 Blood Urea Nitrogen 11 9-23 mg/dL Creatinine 1.10 H 0.550-1.02 mg/dL Glomerular Filtration Rate Calc 49 >90 mL/min BUN/Creatinine Ratio 10.0 10.0-20.0 Serum Glucose 81 74-106 mg/dL Calcium Level 9.3 8.7-10.4 mg/dL Total Bilirubin 0.8 0.2-1.0 mg/dL Aspartate Amino Transferase (AST) 22 13-40 U/L Alanine Aminotransferase (ALT) 14 7-40 U/L Alkaline Phosphatase 45 L 46-116 U/L Total Protein 6.5 5.7-8.2 g/dL Albumin 4.2 3.2-4.8 g/dL Troponin I High Sensitivity 9 </=34 ng/L Lipase 35 12-53 U/L Urine Color Colorless Yellow Urine Clarity Clear Clear Urine pH 7.5 5.0-9.0 Urine Specific [place] 1.006 1.001-1.035 Urine Protein Negative Negative Urine Ketones Negative Negative Urine Blood Negative Negative /uL Urine Nitrite Negative Negative Urine Bilirubin Negative Negative Urine Urobilinogen Normal Negative mg/dL Urine Leukocyte Esterase Negative Negative /uL Urine RBC <1 0 - 4 /hpf Urine Microscopic WBC < 1 0-5 /HPF Urine Squamous Epithelial Cells Few <5 /hpf Urine Bacteria None seen None Seen /hpf Urine Glucose Normal Normal mg/dL Imaging: CT abdomen pelvis IMPRESSION: Concentric wall thickening of the distal colon suggestive of mild infectious / inflammatory colitis. Assessment: Acute colitis Diarrhea Abdominal pain History of gastritis Plan: Discussed with Dr. Beyer Stool for WBC, bacterial culture and C diff Continue antibiotic Monitor labs Clear liquid diet, advance to full liquid as tolerated We will continue to follow the patient Thank you for this consult Date of Service: Jun 12, 2024 Billing Provider: DEBI HDEZ Common Visit Codes: CONSULT ONLY Consultation Codes: [id number] CONSULT <45MIN DEBI HDEZ Jun 12, 2024 12:41
--- NOTE | 2024-06-12 13:18 | DVHPNRES ---
Progress Note Date Seen: Jun 12, 2024 Resident Creating Document: RASHAAD SAMANO RESIDENT Has the PT tested + for MRSA If YES, has PT been informed?: No Medical Necessity Reason Pt with a Central, PICC or Fol: No Subjective Review of Systems A 88y old female with PMHx Gastritis, hypertension, hyperlipidemia, COPD, osteoporosis who came due to diarrhea, patient stated that since 3 days back she is being having liquid stools, no blood no melena. Patient stated mild epigastric pain. Patient lived in assisted living facility with her and stated that the food there sometimes is very oily and upset her stomach CBC was unremarkable creatinine was mildly elevated at 1.8 otherwise CMP unremarkable UA was negative CT scan of the abdomen pelvis shows colitis without obstruction. With these findings we will admit for further workup and IV antibiotics and GI consult Patient denies recent antibiotic use. No history of recent travel Patient admitted to the hospital in October 05, status post EGD Last colonoscopy more than six years ago per patient Objective vital signs Vital Sign Date Time Temp Pulse Resp B/P (MAP) Pulse Ox O2 Delivery O2 Flow Rate FiO2 06/12/24 13:08 98.3 58 16 134/66 (88) 98 98.3 06/12/24 08:00 Room Air* 0 21 Total Intake and Output 06/11/24 06/11/24 06/12/24 15:00 23:00 07:00 Intake Total 1600 ml 100 ml 900 ml Output Total 0 ml Balance 1600 ml 100 ml 900 ml medications Current Medications Medications Dose Ordered Sig/Rob Route Start Time Stop Time Status Last Admin Dose Admin Sodium Chloride 1,000 ml @ 120 mls/hr Q8H20M IV 06/11/24 10:30 06/11/24 18:43 120 MLS/HR Ondansetron HCl 4 mg Q4HP PRN IV 06/11/24 10:30 Docusate Sodium 100 mg BIDPRN PRN PO 06/11/24 10:30 Morphine Sulfate 2 mg Q4HPRN PRN IV 06/11/24 10:30 Morphine Sulfate 1 mg Q4HP PRN IV 06/11/24 10:30 Pantoprazole Sodium 40 mg BID IV 06/11/24 22:00 06/12/24 10:27 40 MG Dicyclomine HCl 20 mg QID PO 06/11/24 18:00 06/12/24 06:03 20 MG Sucralfate 1 gm QID@0600,1130,1700,2200 PO 06/11/24 11:30 06/12/24 10:27 1 GM Piperacillin Sod/ Tazobactam Sod 100 ml @ 25 mls/hr Q8HR IV 06/11/24 22:00 06/12/24 06:04 25 MLS/HR Nitroglycerin 0.4 mg Q5MINP PRN SL 06/11/24 11:45 Metronidazole 100 ml @ 100 mls/hr Q8HR IV 06/12/24 14:00 Examination General Appearance: Alert, Oriented X3, Cooperative, No acute distress HEENT: Atraumatic, PERRLA, EOMI, Mucous membr. moist/pink Respiratory: Clear to auscultation, Normal air movement Cardiovascular: Regular rate, Normal S1, Normal S2, No murmurs Abdominal: Normal bowel sounds, Soft, No masses, non tenderness Extremities: No clubbing, No cyanosis, No edema, Normal pulses, No tenderness/swelling Skin: No rashes, No breakdown, No significant lesion Neuro: Normal speech, Strength at 5/5 X4 ext, Normal tone, Sensation intact, Cranial nerves 3-12 NL Psych/Mental Status: Mental status NL, Mood NL laboratory and microbiology Laboratory Tests 06/12/24 05:24 Test 06/12/24 05:24 Range/Units Serum Glucose 81 74-106 mg/dL Problem List/Assessment/Plan Problem List/Assessment/Plan #Acute intractable abdominal pain likely related to colitis #Diarrhea #Possible infectious colitis #MAI vasomotor mediated due to dehydration #Hypertensive crisis at admission Clear liquid diet IV fluids 120 cc/h Zosyn + metronidazole IV Protonix IV Dicyclomine PO Sucralfate Case discussed with Dr Jacinto Plan discussed with: Patient, Other (rn) My Orders My Orders Orders - RASHAAD SAMANO RESIDENT Procedure Category Date Status Time Clear Liq Diet DIET 06/12/24 Transmitted Lunch Metronidazole PHA 06/12/24 In Process 500mg/100ml (Flagyl 14:00 Ova & Parasite Exam RISA 06/12/24 Logged 11:50 Stool Wbc LAB 06/12/24 Logged 11:50 Stool Bacterial RISA 06/12/24 Logged Culture 11:50 Date of Service: Jun 12, 2024 Billing Provider: ODALYS JACINTO MD Common Visit Codes: [id number] INP/OBS CARE(HIGH) RASHAAD SAMANO RESIDENT Jun 12, 2024 13:18 ODALYS JACINTO MD Jun 12, 2024 21:48
[2024-06-12] MEDS: metroNIDAZOLE 500MG/100ML 100 ML IV SCH (13:27)
[2024-06-12] MEDS: ACETAMINOPHEN 325 MG TAB PO PRN (20:00)
[2024-06-13] VITALS (8 sets, daily range): BP systolic 108–157; BP diastolic 57–76; PULSE 64–79; RESP 15–18; TEMP 97.3–97.9; O2SAT 95–100
[2024-06-13 06:03] LABS: Basophils # (auto) 0.1 10 ^3/uL (0-0.2); Basophils % (auto) 1.8 % (0.0-2.0); Eosinophils # (auto) 0.5 10 ^3/uL (0-0.8); Eosinophils % (auto) 8.4 % (0.0-7.0); Hematocrit 39.9 % (36.0-46.0); Hemoglobin 13.4 g/dL (12.2-16.2); Lymphocytes # (auto) 1.7 10 ^3/uL (0.4-5.4); Lymphocytes % (auto) 30.1 % (10.0-50.0); Mean Corpuscular Hemoglobin 32.2 pg (28.0-32.0); Mean Corpuscular Hgb Conc. 33.6 g/dL (32.0-36.0); Mean Corpuscular Volume 95.7 fL (80.0-100.0); Monocytes # (auto) 0.7 10 ^3/uL (0-1.3); Monocytes % (auto) 12.1 % (0.0-12.0); Neutrophils # (auto) 2.7 10 ^3/uL (1.6-8.6); Neutrophils % (auto) 47.6 % (37.0-80.0); Nucleated Red Blood Cells % 0.1 %; Platelet Count (auto) 220 10^3/uL (140-450); Red Blood Cells 4.17 10^6/uL (4.0-5.20); Red Cell Distribution Width 13.5 % (11.8-14.3); White Blood Cell 5.7 10^3/uL (4.4-10.8)
[2024-06-13 06:25] LABS: Anion Gap 7 (5-15); Carbon Dioxide 25 mmol/L (20-31); Potassium 3.7 mmol/L (3.5-5.1); Sodium 143 mmol/L (136-145)
[2024-06-13 06:26] LABS: Chloride 111 mmol/L (98-107)
[2024-06-13 06:27] LABS: Calcium 9.3 mg/dL (8.7-10.4)
[2024-06-13 06:31] LABS: BUN/Creatinine Ratio 6.8 (10.0-20.0); Glucose 95 mg/dL (74-106)
[2024-06-13 06:37] LABS: Blood Urea Nitrogen 8 mg/dL (9-23)
[2024-06-13] MEDS ORDERED: LACTULOSE 20Gm/30ML SOLN PO ONE (10:15)
[2024-06-13] MEDS: FLORASTOR (S. BOULARDII) 250 MG CAP PO SCH (10:53)
[2024-06-13] MEDS ORDERED: SACC250C PO (11:00)
[2024-06-13] MEDS ORDERED: ACET1CAP14 PO (11:00)
--- NOTE | 2024-06-13 11:01 | DVHDSRES ---
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 Patient was counseled about treatment plan, medications, possible side effects, patientverbalized understanding. All questions were answered to the best of my ability. This discharge took greater then 30 minutes in planning, reviewing documentation, counseling the patient, and discussing with other team members." ASSESSMENT ASSESSMENT Assessment acute gastroenteritis RASHAAD SAMANO RESIDENT Jun 13, 2024 11:01
--- NOTE | 2024-06-13 18:19 | DVHPN2 ---
Progress Note - Dictate Date Seen: Jun 13, 2024 Has the PT tested + for MRSA If YES, has PT been informed?: No Medical Necessity Reason Pt with a Central, PICC or Fol: No Subjective Patient seen at bedside She is ambulating Patient is complaining of some ongoing diarrhea and that is causing her some rectal pain Patient denies any rectal bleeding, there was no nausea vomiting She would like to advance her diet vital signs Vital Sign Date Time Temp Pulse Resp B/P (MAP) Pulse Ox O2 Delivery O2 Flow Rate FiO2 06/13/24 16:45 97.7 74 18 157/76 (103) 95 97.7 06/13/24 08:00 Room Air* 0 21 Total Intake and Output 06/12/24 06/12/24 06/13/24 15:00 23:00 07:00 Intake Total 1200 ml 1300 ml 800 ml Balance 1200 ml 1300 ml 800 ml medications Current Medications Medications Dose Ordered Sig/Rob Route Start Time Stop Time Status Last Admin Dose Admin Sodium Chloride 1,000 ml @ 120 mls/hr Q8H20M IV 06/11/24 10:30 06/13/24 16:30 120 MLS/HR Ondansetron HCl 4 mg Q4HP PRN IV 06/11/24 10:30 Docusate Sodium 100 mg BIDPRN PRN PO 06/11/24 10:30 Morphine Sulfate 2 mg Q4HPRN PRN IV 06/11/24 10:30 Morphine Sulfate 1 mg Q4HP PRN IV 06/11/24 10:30 Pantoprazole Sodium 40 mg BID IV 06/11/24 22:00 06/13/24 10:53 40 MG Dicyclomine HCl 20 mg QID PO 06/11/24 18:00 06/13/24 17:58 20 MG Sucralfate 1 gm QID@0600,1130,1700,2200 PO 06/11/24 11:30 06/13/24 17:57 1 GM Piperacillin Sod/ Tazobactam Sod 100 ml @ 25 mls/hr Q8HR IV 06/11/24 22:00 06/13/24 16:04 25 MLS/HR Nitroglycerin 0.4 mg Q5MINP PRN SL 06/11/24 11:45 Metronidazole 100 ml @ 100 mls/hr Q8HR IV 06/12/24 14:00 06/13/24 16:04 100 MLS/HR Acetaminophen 650 mg Q6HP PRN PO 06/12/24 18:30 06/12/24 20:00 650 MG Saccharomyces Boulardii 250 mg DAILY PO 06/13/24 10:15 06/13/24 10:53 250 MG Lidocaine HCl 1 applic BID PRN TOP 06/13/24 16:15 objective General: NAD, AAOX3 well-developed well-nourished lady in no acute distress Chest: , lung dawn clear to auscultation Heart: RRR, no murmur Abdomen: Nondistended, no tenderness to palpation, +BS Extremities without clubbing cyanosis or edema Neuro alert oriented x3 with no focal deficit laboratory and microbiology Laboratory Tests 06/13/24 05:10 Test 06/13/24 05:10 Range/Units Serum Glucose 95 74-106 mg/dL Problems(with codes): (1) Non-specific colitis (2) Rectal pain (3) Diarrhea Prognosis Plan Continue supportive care Xylocaine ointment poor rectal area Advance to full liquid diet Questran 4 g packet p.o. daily to help with the diarrhea Awaiting stool for WBC C diff , stool for bacterial culture was negative Patient does not feel strong enough to undergo a colonoscopy at this time She is however motivated to follow up in my office as an outpatient to arrange elective colonoscopy once medically stabilized I will follow up patient with you Plan discussed with: Patient, Spouse, Other (Nurse) ALICIA CHE MD Jun 13, 2024 18:19
[2024-06-13] MEDS ORDERED: DIPHENOXYLATE W/ATROPINE 2.5 MG TAB PO PRN (18:30)
--- NOTE | 2024-06-13 19:07 | DVHPNRES ---
Progress Note Date Seen: Jun 13, 2024 Resident Creating Document: RASHAAD SAMANO RESIDENT Has the PT tested + for MRSA If YES, has PT been informed?: No Medical Necessity Reason Pt with a Central, PICC or Fol: No Subjective Review of Systems A 88y old female with PMHx Gastritis, hypertension, hyperlipidemia, COPD, osteoporosis who came due to diarrhea, patient stated that since 3 days back she is being having liquid stools, no blood no melena. Patient stated mild epigastric pain. Patient lived in assisted living facility with her and stated that the food there sometimes is very oily and upset her stomach CBC was unremarkable creatinine was mildly elevated at 1.8 otherwise CMP unremarkable UA was negative CT scan of the abdomen pelvis shows colitis without obstruction. With these findings we will admit for further workup and IV antibiotics and GI consult Patient denies recent antibiotic use. No history of recent travel Patient admitted to the hospital in October 05, status post EGD Last colonoscopy more than six years ago per patient Yesterday no bowel movements and today until noon none, actually lactulose was prescribed but later the patient started to have diarrhea, reason for hold the DC Objective vital signs Vital Sign Date Time Temp Pulse Resp B/P (MAP) Pulse Ox O2 Delivery O2 Flow Rate FiO2 06/13/24 16:45 97.7 74 18 157/76 (103) 95 97.7 06/13/24 08:00 Room Air* 0 21 Total Intake and Output 06/12/24 06/12/24 06/13/24 15:00 23:00 07:00 Intake Total 1200 ml 1300 ml 800 ml Balance 1200 ml 1300 ml 800 ml medications Current Medications Medications Dose Ordered Sig/Rob Route Start Time Stop Time Status Last Admin Dose Admin Sodium Chloride 1,000 ml @ 120 mls/hr Q8H20M IV 06/11/24 10:30 06/13/24 16:30 120 MLS/HR Ondansetron HCl 4 mg Q4HP PRN IV 06/11/24 10:30 Docusate Sodium 100 mg BIDPRN PRN PO 06/11/24 10:30 Morphine Sulfate 2 mg Q4HPRN PRN IV 06/11/24 10:30 Morphine Sulfate 1 mg Q4HP PRN IV 06/11/24 10:30 Dicyclomine HCl 20 mg QID PO 06/11/24 18:00 06/13/24 17:58 20 MG Sucralfate 1 gm QID@0600,1130,1700,2200 PO 06/11/24 11:30 06/13/24 17:57 1 GM Piperacillin Sod/ Tazobactam Sod 100 ml @ 25 mls/hr Q8HR IV 06/11/24 22:00 06/13/24 16:04 25 MLS/HR Nitroglycerin 0.4 mg Q5MINP PRN SL 06/11/24 11:45 Metronidazole 100 ml @ 100 mls/hr Q8HR IV 06/12/24 14:00 06/13/24 16:04 100 MLS/HR Acetaminophen 650 mg Q6HP PRN PO 06/12/24 18:30 06/12/24 20:00 650 MG Saccharomyces Boulardii 250 mg DAILY PO 06/13/24 10:15 06/13/24 10:53 250 MG Lidocaine HCl 1 applic BID PRN TOP 06/13/24 16:15 Pantoprazole Sodium 40 mg DAILY IV 06/14/24 10:00 Diphenoxylate HCl/ Atropine 2.5 mg PRN PRN PO 06/13/24 18:30 Examination General Appearance: Alert, Oriented X3, Cooperative, No acute distress HEENT: Atraumatic, PERRLA, EOMI, Mucous membr. moist/pink Respiratory: Clear to auscultation, Normal air movement Cardiovascular: Regular rate, Normal S1, Normal S2, No murmurs Abdominal: Normal bowel sounds, Soft, No masses, non tenderness Extremities: No clubbing, No cyanosis, No edema, Normal pulses, No tenderness/swelling Skin: No rashes, No breakdown, No significant lesion Neuro: Normal speech, Strength at 5/5 X4 ext, Normal tone, Sensation intact, Cranial nerves 3-12 NL Psych/Mental Status: Mental status NL, Mood NL laboratory and microbiology Laboratory Tests 06/13/24 05:10 Test 06/13/24 05:10 Range/Units Serum Glucose 95 74-106 mg/dL Microbiology Date/Time Source Procedure Growth Status 06/12/24 11:00 Stool Stool Culture - Preliminary Resulted 06/12/24 11:00 Stool Shiga Toxin I & II - Final Resulted Problem List/Assessment/Plan Problem List/Assessment/Plan #Acute intractable abdominal pain likely related to colitis #Diarrhea #Possible infectious colitis #MAI vasomotor mediated due to dehydration #Hypertensive crisis at admission Mechanical soft diet IV fluids 120 cc/h Zosyn + metronidazole IV Protonix IV Dicyclomine PO Sucralfate Loperamide per GI Florastor Case discussed with Dr Santamaria Plan discussed with: Patient, Other (rn) My Orders My Orders Orders - RASHAAD SAMANO Procedure Category Date Status Time Florastor (S. PHA 06/13/24 In Process Boulardirinku) (Florastor) 10:15 Schedule For Dc YOLANDA 06/13/24 In Process Clinic F/U 10:58 Date of Service: Jun 13, 2024 Billing Provider: LEIGH ANN SANTAMARIA DO Common Visit Codes: [id number] INP/OBS CARE(HIGH) RASHAAD SAMANO RESIDENT Jun 13, 2024 19:07 LEIGH ANN SANTAMARIA DO Jun 14, 2024 21:10
[2024-06-13] MEDS: LIDOCAINE HCL 5 % TOP OINT 35 GM TOP PRN (22:14)
[2024-06-14 01:00] VITALS: BP 142/78; PULSE 79; RESP 18; TEMP 98.1; O2SAT 97
[2024-06-14 05:00] VITALS: BP 169/84; PULSE 68; RESP 16; TEMP 98; O2SAT 99
[2024-06-14 06:21] LABS: Anion Gap 7 (5-15); Carbon Dioxide 26 mmol/L (20-31); Potassium 3.5 mmol/L (3.5-5.1); Sodium 143 mmol/L (136-145)
[2024-06-14 06:22] LABS: Calcium 9.3 mg/dL (8.7-10.4)
[2024-06-14 06:25] LABS: Chloride 110 mmol/L (98-107)
[2024-06-14 06:28] LABS: BUN/Creatinine Ratio 6.3 (10.0-20.0); Glucose 97 mg/dL (74-106)
[2024-06-14 06:34] LABS: Blood Urea Nitrogen 6 mg/dL (9-23)
[2024-06-14 08:00] VITALS: PULSE 78; RESP 16
[2024-06-14 09:00] VITALS: BP 138/77; PULSE 81; RESP 18; TEMP 97.8; O2SAT 95
[2024-06-14] MEDS: PANTOPRAZOLE 40 MG/10 ML VIAL INJ IV SCH (11:20)
[2024-06-14 11:26] VITALS: BP 138/77; PULSE 81; RESP 18; TEMP 97.8; O2SAT 95
[2024-06-14 11:47] VITALS: BP 160/77; PULSE 72; RESP 19; TEMP 97.7; O2SAT 97
--- NOTE | 2024-06-14 14:02 | DVHPN2 ---
Progress Note - Dictate Date Seen: Jun 14, 2024 Has the PT tested + for MRSA If YES, has PT been informed?: No Medical Necessity Reason Pt with a Central, PICC or Fol: No Subjective No new complaints, patient is feeling better For bowel movements were recorded, none this morning Patient is tolerating diet vital signs Vital Sign Date Time Temp Pulse Resp B/P (MAP) Pulse Ox O2 Delivery O2 Flow Rate FiO2 06/14/24 11:47 97.7 72 19 160/77 (104) 97 97.7 06/14/24 08:00 Room Air* 0 21 Total Intake and Output 06/13/24 06/13/24 06/14/24 15:00 23:00 07:00 Intake Total 100 ml 1925 ml 600 ml Balance 100 ml 1925 ml 600 ml medications Current Medications Medications Dose Ordered Sig/Rob Route Start Time Stop Time Status Last Admin Dose Admin Ondansetron HCl 4 mg Q4HP PRN IV 06/11/24 10:30 Docusate Sodium 100 mg BIDPRN PRN PO 06/11/24 10:30 Morphine Sulfate 2 mg Q4HPRN PRN IV 06/11/24 10:30 Morphine Sulfate 1 mg Q4HP PRN IV 06/11/24 10:30 Dicyclomine HCl 20 mg QID PO 06/11/24 18:00 06/14/24 07:02 20 MG Sucralfate 1 gm QID@0600,1130,1700,2200 PO 06/11/24 11:30 06/14/24 07:02 1 GM Piperacillin Sod/ Tazobactam Sod 100 ml @ 25 mls/hr Q8HR IV 06/11/24 22:00 06/14/24 07:02 25 MLS/HR Nitroglycerin 0.4 mg Q5MINP PRN SL 06/11/24 11:45 Metronidazole 100 ml @ 100 mls/hr Q8HR IV 06/12/24 14:00 06/14/24 07:02 100 MLS/HR Acetaminophen 650 mg Q6HP PRN PO 06/12/24 18:30 06/12/24 20:00 650 MG Saccharomyces Boulardii 250 mg DAILY PO 06/13/24 10:15 06/14/24 10:00 250 MG Lidocaine HCl 1 applic BID PRN TOP 06/13/24 16:15 06/13/24 22:14 1 APPLIC Pantoprazole Sodium 40 mg DAILY IV 06/14/24 10:00 06/14/24 11:20 40 MG Diphenoxylate HCl/ Atropine 2.5 mg PRN PRN PO 06/13/24 18:30 objective General: NAD, AAOX3 well-developed well-nourished lady in no acute distress Chest: , lung dawn clear to auscultation Heart: RRR, no murmur Abdomen: Nondistended, no tenderness to palpation, +BS Extremities without clubbing cyanosis or edema Neuro alert oriented x3 with no focal deficit laboratory and microbiology Laboratory Tests 06/14/24 05:20 06/13/24 05:10 Test 06/14/24 05:20 Range/Units Serum Glucose 97 74-106 mg/dL Problems(with codes): (1) Diarrhea (2) Rectal pain (3) Non-specific colitis Prognosis Plan Discharge planning is in progress Questran 4 g packet p.o. daily Xylocaine ointment per rectum as needed Patient will be see me in my office as an outpatient to arrange outpatient elective colonoscopy Patient was advised to return to ER if symptoms worsen Dietary Evaluation Review Comments: 1. Continue Mechanical Soft diet per MD discretion 2. Monitor/treat GI sx (stool sample pending) 3. Encourage good oral intakes to meet est. needs Expected Outcomes/Goals: Weight maintenance, adequate nutrition. Plan discussed with: Patient, Spouse ALICIA CHE MD Jun 14, 2024 14:01
--- NOTE | 2024-06-14 15:26 | DVHDSRES ---
Discharge Summary Date of Admission Resident Creating Document: RASHAAD SAMANO RESIDENT Jun 11, 2024 at 11:40 Date of Discharge: Jun 13, 2024 Admitting Diagnosis #Acute intractable abdominal pain likely related to colitis Labs/Diagnostic Data: Laboratory Results Test 06/14/24 05:20 06/13/24 05:10 06/12/24 05:24 06/11/24 08:46 Sodium Level 143 mmol/L (136-145) Potassium Level 3.5 mmol/L (3.5-5.1) Chloride Level 110 mmol/L (98-107) Carbon Dioxide Level 26 mmol/L (20-31) Anion Gap 7 (5-15) Blood Urea Nitrogen 6 mg/dL (9-23) Creatinine 0.96 mg/dL (0.550-1.02) Glomerular Filtration Rate Calc 58 mL/min (>90) BUN/Creatinine Ratio 6.3 (10.0-20.0) Serum Glucose 97 mg/dL (74-106) Calcium Level 9.3 mg/dL (8.7-10.4) White Blood Count 5.7 10^3/uL (4.4-10.8) Red Blood Count 4.17 10^6/uL (4.0-5.20) Hemoglobin 13.4 g/dL (12.2-16.2) Hematocrit 39.9 % (36.0-46.0) Mean Corpuscular Volume 95.7 fL (80.0-100.0) Mean Corpuscular Hemoglobin 32.2 pg (28.0-32.0) Mean Corpuscular Hemoglobin Concent 33.6 g/dL (32.0-36.0) Red Cell Distribution Width 13.5 % (11.8-14.3) Platelet Count 220 10^3/uL (140-450) Mean Platelet Volume 7.0 fL (6.9-10.8) Neutrophils (%) (Auto) 47.6 % (37.0-80.0) Lymphocytes (%) (Auto) 30.1 % (10.0-50.0) Monocytes (%) (Auto) 12.1 % (0.0-12.0) Eosinophils (%) (Auto) 8.4 % (0.0-7.0) Basophils (%) (Auto) 1.8 % (0.0-2.0) Neutrophils # (Auto) 2.7 10 ^3/uL (1.6-8.6) Lymphocytes # (Auto) 1.7 10 ^3/uL (0.4-5.4) Monocytes # (Auto) 0.7 10 ^3/uL (0-1.3) Eosinophils # (Auto) 0.5 10 ^3/uL (0-0.8) Basophils # (Auto) 0.1 10 ^3/uL (0-0.2) Nucleated Red Blood Cells 0.1 % Total Bilirubin 0.8 mg/dL (0.2-1.0) Aspartate Amino Transferase (AST) 22 U/L (13-40) Alanine Aminotransferase (ALT) 14 U/L (7-40) Alkaline Phosphatase 45 U/L (46-116) Total Protein 6.5 g/dL (5.7-8.2) Albumin 4.2 g/dL (3.2-4.8) Troponin I High Sensitivity 9 ng/L (</=34) Lipase 35 U/L (12-53) Test 06/11/24 08:05 Urine Color Colorless (Yellow) Urine Clarity Clear (Clear) Urine pH 7.5 (5.0-9.0) Urine Specific [place] 1.006 (1.001-1.035) Urine Protein Negative (Negative) Urine Ketones Negative (Negative) Urine Blood Negative /uL (Negative) Urine Nitrite Negative (Negative) Urine Bilirubin Negative (Negative) Urine Urobilinogen Normal mg/dL (Negative) Urine Leukocyte Esterase Negative /uL (Negative) Urine RBC <1 /hpf (0 - 4) Urine Microscopic WBC < 1 /HPF (0-5) Urine Squamous Epithelial Cells Few /hpf (<5) Urine Bacteria None seen /hpf (None Seen) Urine Glucose Normal mg/dL (Normal) Other Laboratory Tests 06/14/24 05:20 06/13/24 05:10 Brief Hx & Hospital Course: An 88-year-old female with PMHx of gastritis, hypertension, hyperlipidemia, COPD, and osteoporosis was admitted from her [facility] on 06/12/24 due to 3 days of liquid diarrhea, mild epigastric pain, and concern for dehydration. Labs revealed a creatinine of 1.8 suggestive of MAI likely secondary to volume depletion. CT abdomen/pelvis showed colitis without obstruction. UA and CMP were unremarkable. She was started on IV fluids and empiric antibiotics (Zosyn and metronidazole) for possible infectious colitis, and GI was consulted. During hospitalization, she remained hemodynamically stable and tolerated a mechanical soft diet. Diarrhea was controlled with supportive measures and Her hypertensive crisis at presentation resolved with supportive care and improved when the fluids were stopped. Patient improved clinically, diarrhea decreased, and abdominal pain became manageable. She remained afebrile with no leukocytosis. She will follow up with GI as an outpatient for a colonoscopy and with the discharge clinic for continued care (especially the decision if start antihypertensive medication). Discharged home in stable condition with probiotics and pain management. General Appearance: Alert, Oriented X3, Cooperative, No acute distress HEENT: Atraumatic, PERRLA, EOMI, Mucous membr. moist/pink Respiratory: Clear to auscultation, Normal air movement Cardiovascular: Regular rate, Normal S1, Normal S2, No murmurs Abdominal: Normal bowel sounds, Soft, No masses, non tenderness Extremities: No clubbing, No cyanosis, No edema, Normal pulses, No tenderness/swelling Skin: No rashes, No breakdown, No significant lesion Neuro: Normal speech, Strength at 5/5 X4 ext, Normal tone, Sensation intact, Cranial nerves 3-12 NL Psych/Mental Status: Mental status NL, Mood NL Case discussed with Dr Buck Consults/Reason for consult GI due to diarrhea Operations or Procedures Exam: CT CT AB PEL WO CON-NO ORAL OR IV History: colitis Comparison Study: None Technique: Multidetector spiral CT of the abdomen was performed from lung bases to pubic symphysis. Imaging was performed without IV contrast. Axial, coronal and sagittal multiplanar reformats were obtained from the axial data set by the technologist. Radiation Dose : 1. Abdomen/Pelvis: CTDIvol 5.22 mGy, DLP 251.62 mGy*cm. Findings: Evaluation of solid organs is limited due to lack of intravenous contrast use. Lung Bases: Fibrosis is seen in the bilateral lung bases. Liver: The liver is normal in size. No focal lesions. Gallbladder and Biliary Tree: Unremarkable Spleen: Unremarkable Pancreas: The pancreas is grossly normal in appearance. Adrenal Glands: Unremarkable Kidneys: Kidneys are grossly normal without calculi or hydronephrosis. Bladder: Grossly unremarkable for degree of distention. Bowel: The stomach is grossly normal in appearance. Concentric wall thickening of the distal colon suggestive of mild infectious / inflammatory colitis. The appendix is not visualized; however, no secondary findings of acute appendicitis identified. Ascites: Absent Lymphadenopathy: No mesenteric, retroperitoneal or periportal lymphadenopathy. Abdominal Wall and Mesentery: Unremarkable. Vasculature: The visualized abdominal aorta is normal in size and caliber. Evaluation of abdominal and pelvic vessels is limited due to lack of intravenous contrast. Pelvic Organs: Unremarkable Musculoskeletal: No aggressive focal bony lesions, acute fractures or dislocation. 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 Patient was counseled about treatment plan, medications, possible side effects, patientverbalized understanding. All questions were answered to the best of my ability. This discharge took greater then 30 minutes in planning, reviewing documentation, counseling the patient, and discussing with other team members." ASSESSMENT ASSESSMENT Assessment acute gastroenteritis RASHAAD SAMANO RESIDENT Jun 14, 2024 15:26
[2024-06-14] MEDS ORDERED: LIDO5CRE EX (22:14)
== END 2024-06-14 12:50 | disposition home or self-care (01) | DRG 640 ==
LOC: EDBD 07:46 → ER 07:46 → OVERFLOW 11:40 → MERGE 11:40 → EAST 15:41
PROVIDERS: ADMIT Internal Medicine; ATTEND Internal Medicine
DX: E86.0 Dehydration (principal); N17.0 Acute kidney failure with tubular necrosis; A09 Infectious gastroenteritis and colitis, unspecified; I16.9 Hypertensive crisis, unspecified; E78.5 Hyperlipidemia, unspecified; J44.9 Chronic obstructive pulmonary disease, unspecified; M81.0 Age-related osteoporosis without current pathological fracture; I10 Essential (primary) hypertension; F41.9 Anxiety disorder, unspecified; Z88.5 Allergy status to narcotic agent; Z88.2 Allergy status to sulfonamides; Z79.899 Other long term (current) drug therapy
CPT/HCPCS: 36415; 71045; 74176; 80048; 80053; 81001; 83690; 84484; 85025; 87045; 87177; 87427; 96361; 96374; 96375; G0378; J2405; J2470; J2543; J3490

== ENCOUNTER → 2024-06-23 | Outpatient (CLI) | payer MEDICARE ==
[~2024-06-23] MED LIST changes: +ACET1CAP14 PO; +LIDO5CRE EX; +SACC250C PO
[2024-06-23 06:44] LABS: Urine Bacteria None Seen /hpf (None Seen)
[2024-06-23 06:54] LABS: Basophils # (auto) 0.1 10 ^3/uL (0-0.2); Basophils % (auto) 1.2 % (0.0-2.0); Eosinophils # (auto) 0.2 10 ^3/uL (0-0.8); Eosinophils % (auto) 3.1 % (0.0-7.0); Hematocrit 42.5 % (36.0-46.0); Hemoglobin 14.3 g/dL (12.2-16.2); Lymphocytes # (auto) 2.7 10 ^3/uL (0.4-5.4); Lymphocytes % (auto) 37.3 % (10.0-50.0); Mean Corpuscular Hgb Conc. 33.6 g/dL (32.0-36.0); Mean Corpuscular Volume 95.2 fL (80.0-100.0); Monocytes # (auto) 0.7 10 ^3/uL (0-1.3); Monocytes % (auto) 9.5 % (0.0-12.0); Neutrophils # (auto) 3.5 10 ^3/uL (1.6-8.6); Neutrophils % (auto) 48.9 % (37.0-80.0); Platelet Count (auto) 286 10^3/uL (140-450); Red Blood Cells 4.47 10^6/uL (4.0-5.20); Red Cell Distribution Width 13.8 % (11.8-14.3); White Blood Cell 7.1 10^3/uL (4.4-10.8)
[2024-06-23 07:18] LABS: Urine Blood Negative /uL (Negative); Urine Clarity Clear (Clear); Urine Color Light-Yellow (Yellow); Urine Protein, UAD Negative (Negative); Urine Specific Gravity 1.009 (1.001-1.035); Urine Squamous Epithelial Cell None Seen /hpf (<5); Urine Urobilinogen Normal (Negative); Urine WBC 1 /HPF (0-5); Urine pH 6.5 (5.0-9.0)
[2024-06-23 07:34] LABS: Alanine Aminotransferase 20 U/L (7-40); Alkaline Phosphatase 50 U/L (46-116); Anion Gap 10 (5-15); Aspartate Aminotransferase 23 U/L (13-40); BUN/Creatinine Ratio 14.7 (10.0-20.0); Bilirubin, Direct 0.2 mg/dL (<0.3); Blood Urea Nitrogen 17 mg/dL (9-23); Carbon Dioxide 27 mmol/L (20-31); Chloride 101 mmol/L (98-107); Cholesterol 159 mg/dL (< 200); HDL Cholesterol 55 mg/dL (40-59); LDL Cholesterol 85 mg/dL (< 100); Potassium 4.2 mmol/L (3.5-5.1); Sodium 138 mmol/L (136-145); Total Protein 7.5 g/dL (5.7-8.2); Triglycerides 127 mg/dL (< 150)
[2024-06-23 07:35] LABS: Bilirubin, Total 0.6 mg/dL (0.2-1.0)
[2024-06-23 07:39] LABS: Albumin 4.8 g/dL (3.2-4.8); Calcium 10.6 mg/dL (8.7-10.4); Glucose 127 mg/dL (74-106)
== END | disposition home or self-care (01) ==
LOC: LAB 06:28
DX: I10 Essential (primary) hypertension (principal); E03.9 Hypothyroidism, unspecified; E28.0 Estrogen excess; N30.20 Other chronic cystitis without hematuria; R73.9 Hyperglycemia, unspecified
CPT/HCPCS: 36415; 80053; 80061; 80076; 81001; 83036; 84436; 84443; 85025

== ENCOUNTER 2024-10-05 08:27 | Outpatient (CLI) | payer MEDICARE | END 2024-10-05 17:00 | disposition home or self-care (01) | LOC: RT 08:27 | PROVIDERS: ATTEND Internal Medicine | DX: R06.02 Shortness of breath (principal) | CPT/HCPCS: 94060; 94729 ==

== ENCOUNTER → 2025-01-23 | Outpatient (CLI) | payer MEDICARE ==
[2025-01-23 07:32] LABS: Hematocrit 42.5 % (36.0-46.0); Hemoglobin 14.6 g/dL (12.2-16.2); Mean Corpuscular Hemoglobin 32.1 pg (28.0-32.0); Mean Corpuscular Volume 93.5 fL (80.0-100.0); Nucleated Red Blood Cells % 0.1 %
[2025-01-23 07:54] LABS: Urine Protein, UAD Negative (Negative)
[2025-01-23 08:39] LABS: Alanine Aminotransferase 22 U/L (7-40); Albumin 4.4 g/dL (3.2-4.8); Alkaline Phosphatase 53 U/L (46-116); BUN/Creatinine Ratio 11.9 (10.0-20.0); Blood Urea Nitrogen 13 mg/dL (9-23); Calcium 9.6 mg/dL (8.7-10.4); Carbon Dioxide 29 mmol/L (20-31); Cholesterol 164 mg/dL (< 200); Potassium 4.4 mmol/L (3.5-5.1); Sodium 140 mmol/L (136-145); Total Protein 7.2 g/dL (5.7-8.2); Triglycerides 89 mg/dL (< 150)
[2025-01-23 08:40] LABS: Bilirubin, Direct 0.2 mg/dL (<0.3); Bilirubin, Total 0.6 mg/dL (0.2-1.0); Glucose 108 mg/dL (74-106); HDL Cholesterol 65 mg/dL (40-59)
[2025-01-23 08:51] LABS: Anion Gap 9 (5-15); Chloride 102 mmol/L (98-107)
[2025-01-23 16:42] LABS: Microalb/Creat Ratio, Urine 6.00
== END | disposition home or self-care (01) ==
LOC: LAB 06:15
DX: I10 Essential (primary) hypertension (principal); E03.9 Hypothyroidism, unspecified; E78.00 Pure hypercholesterolemia, unspecified; R73.9 Hyperglycemia, unspecified; R30.0 Dysuria; Z00.00 Encounter for general adult medical examination without abnormal findings
CPT/HCPCS: 36415; 80053; 80061; 80076; 81001; 82043; 82570; 83036; 84436; 84443; 85025

== ENCOUNTER 2025-02-05 10:41 | Outpatient (CLI) | payer MEDICARE ==
[2025-02-05 12:24] LABS: Blood Urea Nitrogen 14.0 mg/dL (9-23)
== END 2025-02-05 17:00 | disposition home or self-care (01) ==
LOC: LAB 10:41
PROVIDERS: ATTEND Internal Medicine Gastroenterology
DX: K58.9 Irritable bowel syndrome, unspecified (principal)
CPT/HCPCS: 36415; 82565; 84520

== ENCOUNTER 2025-02-21 14:34 | Outpatient (CLI) | payer MEDICARE | END 2025-02-21 17:00 | disposition home or self-care (01) | LOC: XYW 14:34 | PROVIDERS: ATTEND Internal Medicine | DX: I10 Essential (primary) hypertension (principal) | CPT/HCPCS: 93306 ==